=== PATIENT | male | born 1980 | race Caucasian/White ===

== ENCOUNTER 2017-09-21 08:43 | Emergency (ER) | payer SELFPAY, MEDICAID | END 2017-09-21 10:28 | disposition home or self-care (01) | LOC: FTE 08:43 → E/R 10:28 | DX: R05 Cough (principal); R50.9 Fever, unspecified; R51 Headache; R09.81 Nasal congestion | CPT/HCPCS: 99283 ==

== ENCOUNTER 2018-05-14 14:12 | Emergency (ER) | payer SELFPAY ==
[2018-05-14 18:08] LABS: URINE PH (Dip) POC 5.5 (5.0-8.5)
[2018-05-14 18:08] LABS: URINE BLOOD (Dip) POC Negative (NEGATIVE); URINE GLUCOSE (Dip) POC Negative (NEGATIVE); URINE KETONES (Dip) POC Negative (NEGATIVE); URINE LEUKOCYTE EST (Dip) POC Negative (NEGATIVE); URINE NITRITE (Dip) POC Negative (NEGATIVE); URINE TOTAL PROTEIN POC Negative (NEGATIVE)
[2018-05-14] MEDS: LIDOCAINE 5% PATCH TD (18:09)
== END 2018-05-14 19:08 | disposition home or self-care (01) ==
LOC: FTE 14:12
DX: M54.5 Low back pain (principal); R40.2412 Glasgow coma scale score 13-15, at arrival to emergency department
CPT/HCPCS: 81003; 99283

== ENCOUNTER 2018-10-17 11:11 | Emergency (ER) | payer MEDICAID | END 2018-10-17 12:51 | disposition home or self-care (01) | LOC: FTE 11:11 | DX: J40 Bronchitis, not specified as acute or chronic (principal) | CPT/HCPCS: 99283; Z7502 ==